=== PATIENT | male | born 1985 | race African-American/Black ===

== ENCOUNTER 2023-07-25 00:29 | Emergency (ER) | payer OTHER ==
--- NOTE | 2023-07-25 00:58 | ED Physician Documentation ---
PD HPI HEENT - Stated complaint Stated Complaint: TOOTH PX - Chief complaint Chief Complaint: Heent - History obtained from History obtained from: Patient - Additional information Additional information: HPI from patient. Patient c/o left mandibular tooth pain since last night. Pain was of gradual ons et and without inciting event. The pain is constant and steadily worsening, becoming associated with focal swelling of the gumline adjacent to the affected tooth. Denies h/o similar symptoms, denies fever. Pain is exacerbated with opening mouth, palpation, chewing. Review of Systems Constitutional: denies: Fever Throat: reports: Dental pain / toothache PD PAST MEDICAL HISTORY - Past Medical History Past Medical History: No - Past Surgical History Past Surgical History: No - Present Medications Home Medications: Ambulatory Orders Medication Instructions Recorded Confirmed Amox/Clav 875/125 [Augmentin 1 tablet PO Q12H 7 Days #14 tablet 07/25/23 875/125 Tab] Ibuprofen [Motrin] 600 mg PO Q6H PRN #20 tab 07/25/23 oxyCODONE [Roxicodone] 5 - 10 mg PO Q6H PRN #14 tablet 07/25/23 - Allergies Allergies/Adverse Reactions: Allergies Allergy/AdvReac Type Severity Reaction Status Date / Time No Known Drug Allergies Allergy Verified 07/25/23 01:39 - Social History Does the pt smoke?: Yes Smoking Status: Current every day smoker Does the pt drink ETOH?: No Does the pt have substance abuse?: No - Immunizations Immunizations are current?: Yes PD ED PE NORMAL - Vitals Vital signs reviewed: Yes - General General: Alert and oriented X 3, No acute distress, Well developed/nourished - HEENT HEENT: Moist mucous membranes PD ED PE EXPANDED - HEENT HEENT Visual: 1 - tenderness (pain with percussion of tooth (using tongue depressor); there is mild swelling and erythema of the buccal gingiva adjacent to #18 without d/c or fluctuance) Results - Vitals Vitals: Oxygen O2 Source Room air PD Medical Decision Making - ED course Complexity details: considered differential, d/w patient ED course: H+P c/w early dental infection without evidence of drainable abscess. Given 600mg ibuprofen and take-home pack of percocet. Given 875mg PO augmentin. He is provided with a work note and e-prescribed augmentin and percocet. Return precau tions discussed. Recommended he seek follow up with dentist. Departure - Departure Disposition: 01 Home, Self Care Clinical Impression: Dental infection Condition: Good Instructions: ED Tooth Pain Prescriptions: Amox/Clav 875/125 [Augmentin 875/125 Tab] 1 tablet PO Q12H 7 Days #14 tablet Ibuprofen [Motrin] 600 mg PO Q6H PRN #20 tab PRN Reason: Pain oxyCODONE [Roxicodone] 5 - 10 mg PO Q6H PRN #14 tablet PRN Reason: Pain >8 Comments: There appears to be an infection adjacent to your left second molar tooth of the jaw. You given the first dose of an antibiotic (Augmentin) in the emergency department, along with 600 mg of ibuprofen. I am electronically submitting prescriptions for a one week course of the antibiotic to the [facility] pharmacy in [place]. I have also submitted a prescription for oxycodone (narcotic/opiate pain medication) as well as ibuprofen 600 mg tablets. Your symptoms should start improving in 2 to 3 days if the antibiotic works. You can use the ibuprofen per the prescription instructions for pain, and the oxycodone for pain that is not controlled with the ibuprofen alone. Do not drive for minimum of 6 hours after taking a dose of oxycodone, as it might impair driving/reaction time. You should seek follow-up with a dentist by the end of this week for reevaluation of the infection. I am prescribing a short course of narcotic pain medication for you. These are potentially dangerous and addictive medications that should be used carefully. These medications may constipate you. Take an [id number]-[id number] stool softener (docusate) twice daily with plenty of water while taking these medications. If you go 24 hours without a bowel movement, take [id number] miralax, per package instructions. Do not drink or drive while taking these medications. If you received narcotic or sedating medications while in the emergency department, do not drive for 24 hours. Store this medication in a safe, secure place and out of reach of children. It is a violation of federal law to give or sell this medication to another person or to use in a manner other than prescribed. The ED will not refill narcotic prescriptions, including prescriptions lost or stolen. To dispose of unwanted medications: 1. [facility] [address] in [place] has a medication drop box. They accept prescription medications (in pill form) Sunday through Sunday 9:00 a.m. to 5:00 p.m. 2. The [facility] [employer] accepts prescription medications (in pill form only) for disposal year round. Call for more information. 3. Contact the [facility] for the next [facility] sponsored prescription drug collection event. , [phone], or [phone]; Forms: Activity restrictions Discharge Date/Time: 07/25/23 01:52
[2023-07-25] MEDS ORDERED: IBUPROFEN 600 MG TABLET PO STA (01:29)
[2023-07-25] MEDS ORDERED: AMOX/CLAV 875 MG/125 MG TABLET PO STA (01:29)
[2023-07-25] MEDS ORDERED: oxyCODONE/ACET 5/325 Prepack 4 PO STA (01:29)
[2023-07-25 01:48] VITALS: O2SAT 100
[2023-07-25 02:05] VITALS: BP 135/74
== END 2023-07-25 01:52 | disposition home or self-care (01) ==
LOC: ED 00:29
DX: K04.7 Periapical abscess without sinus (principal); F17.200 Nicotine dependence, unspecified, uncomplicated
CPT/HCPCS: 99283; A9270